=== PATIENT | female | born 1935 | race Caucasian/White ===

== ENCOUNTER 2019-08-28 14:29 | Inpatient (IN) | payer MEDICARE, OTHER ==
[~2019-08-28] VITALS: Ht 162.6 cm; Wt 57.6 kg
--- NOTE | 2019-08-28 14:35 | NUR ---
DR Rivas at the bedside for MSE.
[2019-08-28] MEDS ORDERED: IV NORMAL SALINE 500 ML BAG IV ONE (14:45)
[2019-08-28 15:24] LABS: BASOPHILS % (AUTO) 0.5 % (0.0-2.0); EOSINOPHILS % (AUTO) 0.5 % (0.0-7.0); HEMATOCRIT 38.6 % (31.2-41.9); LYMPHOCYTES # (AUTO) 1.4 K/uL (20.0-40.0); MEAN CORPUSCULAR HEMOGLOBIN 31.4 uug (24.7-32.8); MEAN CORPUSCULAR HGB CONC 34 g/dL (32.3-35.6); MEAN CORPUSCULAR VOLUME 93.4 fL (75.5-95.3); MONOCYTES # (AUTO) 0.6 K/uL (2.0-10.0); MONOCYTES % (AUTO) 9.7 % (0.0-11.0); NEUTROPHILS # (AUTO) 4.5 K/uL (1.8-8.9); NEUTROPHILS % (AUTO) 68.3 % (38.5-71.5); PLATELET COUNT (AUTO) 195 K/uL (179-408); RED BLOOD CELL COUNT(AUTO) 4.14 MIL/uL (3.63-4.92); WHITE BLOOD COUNT (AUTO) 6.5 K/uL (3.8-11.8)
[2019-08-28 15:32] LABS: CARBON DIOXIDE 23 mmol/L (21-32); CHLORIDE 109 mmol/L (98-107); CREATININE 0.8 mg/dL (0.6-1.3); GLUCOSE 118 mg/dL (74-106); POTASSIUM 3.8 mmol/L (3.5-5.1); UREA NITROGEN, BLOOD 19 mg/dL (7-18)
[2019-08-28 15:38] LABS: ALANINE AMINOTRANSFERASE 17 U/L (14-59); ALKALINE PHOSPHATASE 118 U/L (50-136); ASPARTATE AMINOTRANSFERASE 14 U/L (15-37); BILIRUBIN,DIRECT 0.1 mg/dL (0.0-0.2); BILIRUBIN,TOTAL 0.2 mg/dL (0.2-1.0); TOTAL PROTEIN, SERUM 7.3 g/dL (6.4-8.2)
[2019-08-28 15:42] LABS: ACETAMINOPHEN < 2.0 ug/mL (10-30); ETHANOL < 3 MG/DL (0-0)
[2019-08-28 16:00] LABS: *BILIRUBIN,URIN NEGATIVE (NEGATIVE); *BLOOD, URINE NEGATIVE (NEGATIVE); *CLARITY,URINE CLEAR (CLEAR); *COLOR,URINE YELLOW (YELLOW); *KETONES,URINE NEGATIVE (NEGATIVE); *UROBILINOGEN,URINE 0.2 E.U./dl (NORMAL); LEUKOCYTE ESTERASE ,URINE NEGATIVE (NEGATIVE); NITRITE, URINE NEGATIVE (NEGATIVE); UGLUCOSE NEGATIVE (NEGATIVE)
[2019-08-28 16:11] LABS: *AMPHETAMINE, URINE NEGATIVE (NEGATIVE); *BARBITURATE, URINE NEGATIVE (NEGATIVE); *CANNABINOID, URINE NEGATIVE (NEGATIVE); *COCCAINE, URINE NEGATIVE (NEGATIVE); *OPIATE, URINE NEGATIVE (NEGATIVE); *PHENCYCLIDINE SCREEN,URINE NEGATIVE (NEGATIVE)
--- NOTE | 2019-08-28 16:22 | NUR ---
Patient is resting comfortably in bed with eyes closed, NAD noted.
--- NOTE | 2019-08-28 17:00 | NUR ---
RECEIVED PATIENT FROM ER ADMITTED TO TELE UNIT WITH DIAGNOSIS OF ALTERED MENTAL STATUS, PATIENT NEPALESE SPEAKING ALERT AND ORIENTED X2, PATIENT HAS LEFT HEMIPLEGIA/ HEMIPARESIS. NO SOB AND NO C/O PAIN AT THIS TIME. BELONGINGS ACCOUNTED FOR AND PATIENT UNABLE TO SIGN. PATIENT BED IN LOW POSITION AND SIDE RAILS UPS. SAFETY AND COMFORT PROVIDED . WILL CONTINUE TO MONITOR.
[2019-08-28 17:11] VITALS: BP 183/89
[2019-08-28] MEDS ORDERED: BISACODYL 10 MG SUPP.RECT RC PRN (17:45)
[2019-08-28] MEDS ORDERED: FLEET ENEMA 133 ML BOTTLE RC PRN (17:45)
[2019-08-28] MEDS ORDERED: MORPHINE SULFATE 2 MG/1 ML DISP.SYRIN IV PRN (17:45)
[2019-08-28] MEDS ORDERED: ACETAMINOPHEN 325 MG TABLET PO PRN (17:45)
[2019-08-28] MEDS ORDERED: ONDANSETRON 4 MG/2 ML VIAL IV PRN (17:45)
--- NOTE | 2019-08-28 19:20 | NUR ---
PATIENT IN BED , ALERT AND ORIENTED X2, NO SOB AND NO C/O PAIN AT THIS TIME. KEPT CLEAN AND DRY AT ALL TIMES. BED IN LOW POSITION AND SIDE RAILS UP . CALL LIGHT WITHIN REACH. WILL CONTINUE TO MONITOR.
--- NOTE | 2019-08-28 19:30 | NUR ---
Received patient awake and alert in bed, A/Ox1-2, Faroese speaking. No signs of acute distress noted. Complains of some soreness to the neck, no complaints of SOB. Heplock on the right AC is intact and patent. Safety measures initiated. Bed is low and locked, call light within reach. Will continue to monitor.
[2019-08-28 19:53] VITALS: BP 153/75
--- NOTE | 2019-08-28 20:20 | NUR ---
Patient left to radiology for CT scan in stable condition
--- NOTE | 2019-08-28 20:34 | NUR ---
Patient returned from CT.
[2019-08-28] MEDS: MELATONIN 3 MG TABLET PO SCH (20:51)
[2019-08-28] MEDS: LATANOPROST OPHT DROP 2.5 ML BOTTLE EACHEYE SCH (20:51)
[2019-08-28] MEDS: hydrALAZINE HCL 50 MG TABLET PO SCH (21:01)
[2019-08-29 00:48] VITALS: BP 117/59
[2019-08-29 06:19] LABS: BASOPHILS % (AUTO) 0.7 % (0.0-2.0); EOSINOPHILS # (AUTO) 0.1 K/uL (0.0-0.7); EOSINOPHILS % (AUTO) 1.1 % (0.0-7.0); HEMATOCRIT 35.1 % (31.2-41.9); HEMOGLOBIN 12.3 g/dL (10.9-14.3); LYMPHOCYTES # (AUTO) 1.6 K/uL (20.0-40.0); MEAN CORPUSCULAR HEMOGLOBIN 32.4 uug (24.7-32.8); MEAN CORPUSCULAR HGB CONC 35 g/dL (32.3-35.6); MEAN CORPUSCULAR VOLUME 92.5 fL (75.5-95.3); MONOCYTES # (AUTO) 0.5 K/uL (2.0-10.0); MONOCYTES % (AUTO) 9.2 % (0.0-11.0); NEUTROPHILS # (AUTO) 3.6 K/uL (1.8-8.9); PLATELET COUNT (AUTO) 183 K/uL (179-408); RED BLOOD CELL COUNT(AUTO) 3.79 MIL/uL (3.63-4.92); WHITE BLOOD COUNT (AUTO) 5.9 K/uL (3.8-11.8)
[2019-08-29] MEDS: hydrALAZINE HCL 50 MG TABLET PO SCH ×3 (06:30→21:03)
[2019-08-29 06:40] LABS: THYROID STIMULATING HORMONE 2.524 mIU/mL (0.358-3.740)
[2019-08-29 06:55] LABS: BILIRUBIN,TOTAL 0.5 mg/dL (0.2-1.0); CREATININE 0.8 mg/dL (0.6-1.3); MAGNESIUM 1.7 mg/dL (1.8-2.4); POTASSIUM 3.6 mmol/L (3.5-5.1); TOTAL PROTEIN, SERUM 6.8 g/dL (6.4-8.2)
[2019-08-29] MEDS: DIGOXIN 125 MCG TABLET PO SCH (08:47)
[2019-08-29] MEDS: ASPIRIN 81 MG TAB.CHEW PO SCH (08:47)
[2019-08-29] MEDS: MULTIVIT, IRON, MIN NO. 8, FA TABLET PO SCH (08:47)
[2019-08-29] MEDS: GABAPENTIN 300 MG CAPSULE PO SCH ×3 (08:47→17:27)
[2019-08-29] MEDS: LISINOPRIL 20 MG TABLET PO SCH ×2 (08:48→17:26)
[2019-08-29] MEDS: FAMOTIDINE 20 MG TABLET PO SCH (08:48)
[2019-08-29] MEDS ORDERED: Medication Not On Formulary EA (Multivitamins W-Minerals (Multivitamin With Minerals) 1 PO SCH (09:00)
--- NOTE | 2019-08-29 09:28 | NUR ---
SEEN BY PHYSICAL THERAPIST FOR EVAL SEE NOTES
[2019-08-29 11:16] VITALS: BP 132/52
[2019-08-29] MEDS: MAGNESIUM SULFATE/D5W 100 ML IV SCH ×2 (14:54→16:09)
[2019-08-29 15:03] VITALS: BP 133/52
[2019-08-29] MEDS: DOCUSATE SODIUM 100 MG CAPSULE PO SCH (17:25)
--- NOTE | 2019-08-29 19:30 | NUR ---
Received patient awake and alert in bed, no signs of acute distress noted. No complaints of pain or SOB at this time. Heplock on the right AC intact and patent. Will turn and reposition frequently. Safety measures initiated. Bed is low and locked, call light within reach, bed alarm on. Will continue to monitor.
[2019-08-29 20:20] VITALS: BP 124/57
[2019-08-29] MEDS: MELATONIN 3 MG TABLET PO SCH (20:40)
[2019-08-29] MEDS: LATANOPROST OPHT DROP 2.5 ML BOTTLE EACHEYE SCH (20:40)
[2019-08-30 00:53] VITALS: BP 132/59
[2019-08-30 04:00] VITALS: BP 102/48
[2019-08-30] MEDS: hydrALAZINE HCL 50 MG TABLET PO SCH ×3 (06:00→21:02)
[2019-08-30 06:42] LABS: MAGNESIUM 2.3 mg/dL (1.8-2.4); POTASSIUM 3.9 mmol/L (3.5-5.1)
--- NOTE | 2019-08-30 08:00 | NUR ---
AWAKE ALERT BUT CONFUSED X3. CONFUSED AND REFUSING TO EAT. NO SS OF PAIN OR DISTRESS. SEEN BY PHYSICAL THERAPIST. SEE NOTES
[2019-08-30] MEDS: FAMOTIDINE 20 MG TABLET PO SCH (08:59)
[2019-08-30] MEDS: ASPIRIN 81 MG TAB.CHEW PO SCH (08:59)
[2019-08-30] MEDS: MULTIVIT, IRON, MIN NO. 8, FA TABLET PO SCH (08:59)
[2019-08-30] MEDS: GABAPENTIN 300 MG CAPSULE PO SCH ×3 (09:00→17:27)
[2019-08-30] MEDS: DOCUSATE SODIUM 100 MG CAPSULE PO SCH ×2 (09:00→17:27)
[2019-08-30] MEDS: LISINOPRIL 20 MG TABLET PO SCH ×2 (09:00→17:27)
[2019-08-30] MEDS: DIGOXIN 125 MCG TABLET PO SCH (09:00)
[2019-08-30 11:00] VITALS: BP 165/48
--- NOTE | 2019-08-30 12:00 | NUR ---
MOVED TO ROOM 309 FOR SAFETY ISSUE SR/SB ON MONITOR
[2019-08-30] MEDS ORDERED: CEphaleXIN 500 MG CAPSULE PO SCH (14:00)
[2019-08-30 16:00] VITALS: BP 132/39
--- NOTE | 2019-08-30 17:52 | NUR ---
PLAN DC BACK TO [facility]. PATIENT REMAINS AFEBRILE. CONTINUE WITH MACROBID PO FOR UTI. PATIENT REMAINS CONFUSED REFUSING TO EAT. SEEN BY PUMP RUNNER
--- NOTE | 2019-08-30 19:20 | NUR ---
Received patient lying in bed. Awake, but non-verbal. Affect flat. No signs or symptoms of pain or SOB noted. V pacing on tele with HR of 60/min. IV site on right AC intact and patent. Safety measure initiated and call garcia within reached. Continue to monitor.
[2019-08-30 20:05] VITALS: BP 187/71
[2019-08-30] MEDS: NITROFURANTOIN/NITROFURAN MAC 100 MG CAPSULE PO SCH (21:01)
[2019-08-30] MEDS: MELATONIN 3 MG TABLET PO SCH (21:01)
[2019-08-30] MEDS: LATANOPROST OPHT DROP 2.5 ML BOTTLE EACHEYE SCH (21:02)
[2019-08-31 00:20] VITALS: BP 142/75
[2019-08-31 04:18] VITALS: BP 136/72
[2019-08-31] MEDS: hydrALAZINE HCL 50 MG TABLET PO SCH ×3 (06:14→21:29)
--- NOTE | 2019-08-31 06:29 | NUR ---
Awake, but non-verbal. No signs or symptoms of pain or SOB noted. V pacing on tele with HR of 60/min. IV site on right AC intact and patent. No adverse effect noted from PO ABX. Safety measure maintained and call garcia within reached.
[2019-08-31 07:25] LABS: BASOPHILS % (AUTO) 0.8 % (0.0-2.0); EOSINOPHILS # (AUTO) 0.1 K/uL (0.0-0.7); EOSINOPHILS % (AUTO) 1.9 % (0.0-7.0); HEMATOCRIT 38.5 % (31.2-41.9); HEMOGLOBIN 13.2 g/dL (10.9-14.3); LYMPHOCYTES # (AUTO) 1.6 K/uL (20.0-40.0); LYMPHOCYTES % (AUTO) 29.3 % (20.5-51.5); MEAN CORPUSCULAR HEMOGLOBIN 31.8 uug (24.7-32.8); MEAN CORPUSCULAR HGB CONC 34 g/dL (32.3-35.6); MEAN CORPUSCULAR VOLUME 92.6 fL (75.5-95.3); MONOCYTES # (AUTO) 0.6 K/uL (2.0-10.0); MONOCYTES % (AUTO) 11.1 % (0.0-11.0); NEUTROPHILS # (AUTO) 3.2 K/uL (1.8-8.9); NEUTROPHILS % (AUTO) 56.9 % (38.5-71.5); PLATELET COUNT (AUTO) 183 K/uL (179-408); RED BLOOD CELL COUNT(AUTO) 4.15 MIL/uL (3.63-4.92); WHITE BLOOD COUNT (AUTO) 5.5 K/uL (3.8-11.8)
--- NOTE | 2019-08-31 07:30 | NUR ---
Awake, confused, maori speaking. Bed alarm on
[2019-08-31 07:34] LABS: CREATININE 0.8 mg/dL (0.6-1.3); POTASSIUM 3.5 mmol/L (3.5-5.1)
[2019-08-31] MEDS: ASPIRIN 81 MG TAB.CHEW PO SCH (09:09)
[2019-08-31] MEDS: NITROFURANTOIN/NITROFURAN MAC 100 MG CAPSULE PO SCH ×2 (09:09→20:33)
[2019-08-31] MEDS: DIGOXIN 125 MCG TABLET PO SCH (09:09)
[2019-08-31] MEDS: DOCUSATE SODIUM 100 MG CAPSULE PO SCH ×2 (09:09→17:38)
[2019-08-31] MEDS: FAMOTIDINE 20 MG TABLET PO SCH (09:10)
[2019-08-31] MEDS: LISINOPRIL 20 MG TABLET PO SCH ×2 (09:10→17:38)
[2019-08-31] MEDS: GABAPENTIN 300 MG CAPSULE PO SCH ×3 (09:10→17:38)
[2019-08-31] MEDS: MULTIVIT, IRON, MIN NO. 8, FA TABLET PO SCH (09:10)
--- NOTE | 2019-08-31 10:00 | NUR ---
Participated with PT, doing exercises at edge of bed
[2019-08-31 10:29] VITALS: BP 145/55
[2019-08-31 14:39] VITALS: BP 167/71
--- NOTE | 2019-08-31 15:54 | NUR ---
Calm and cooperative with care and taking of medications
--- NOTE | 2019-08-31 17:00 | NUR ---
Dr. Sneed informed of patient's vp design (Dr. Jordan Huitron) request to check pacemaker device ([employer]) and to possibly do generator replacement as patient was scheduled to this procedure on 09/11/19
--- NOTE | 2019-08-31 18:29 | NUR ---
Pleasant and cooperative with care. Free from fall or injury
--- NOTE | 2019-08-31 19:30 | NUR ---
PATIENT ALERT ORIENTED, NO SOB NO CHEST PAIN, SPEAK [place] BUT UNDERSTAND CYMRO. NO COMPLAIN OF PAIN, CONT TO MONITOR.
[2019-08-31 20:00] VITALS: BP 118/62
[2019-08-31] MEDS: MELATONIN 3 MG TABLET PO SCH (20:33)
[2019-08-31] MEDS: LATANOPROST OPHT DROP 2.5 ML BOTTLE EACHEYE SCH (20:42)
[2019-09-01 04:05] VITALS: BP 142/70
[2019-09-01] MEDS: hydrALAZINE HCL 50 MG TABLET PO SCH ×2 (06:02→13:15)
--- NOTE | 2019-09-01 06:30 | NUR ---
PATIENT SLEPT INTERMITTENTLY, DENIES PAIN AT THIS TIME, KEPT CLEAN DRY AND COMFORTABLE, CALL LIGHT WITHIN REACH.
[2019-09-01 06:38] LABS: BASOPHILS % (AUTO) 0.9 % (0.0-2.0); EOSINOPHILS # (AUTO) 0.1 K/uL (0.0-0.7); EOSINOPHILS % (AUTO) 1.7 % (0.0-7.0); HEMATOCRIT 37.4 % (31.2-41.9); HEMOGLOBIN 12.7 g/dL (10.9-14.3); LYMPHOCYTES # (AUTO) 1.4 K/uL (20.0-40.0); LYMPHOCYTES % (AUTO) 28.6 % (20.5-51.5); MEAN CORPUSCULAR HEMOGLOBIN 31.6 uug (24.7-32.8); MEAN CORPUSCULAR HGB CONC 34 g/dL (32.3-35.6); MONOCYTES # (AUTO) 0.6 K/uL (2.0-10.0); MONOCYTES % (AUTO) 12.6 % (0.0-11.0); NEUTROPHILS # (AUTO) 2.8 K/uL (1.8-8.9); NEUTROPHILS % (AUTO) 56.2 % (38.5-71.5); PLATELET COUNT (AUTO) 187 K/uL (179-408); RED BLOOD CELL COUNT(AUTO) 4.02 MIL/uL (3.63-4.92)
[2019-09-01 06:43] LABS: CREATININE 0.8 mg/dL (0.6-1.3); POTASSIUM 3.7 mmol/L (3.5-5.1)
[2019-09-01 08:17] VITALS: BP 154/68
[2019-09-01] MEDS: NITROFURANTOIN/NITROFURAN MAC 100 MG CAPSULE PO SCH (08:54)
[2019-09-01] MEDS: DIGOXIN 125 MCG TABLET PO SCH (08:54)
[2019-09-01] MEDS: LISINOPRIL 20 MG TABLET PO SCH ×2 (08:54→16:34)
[2019-09-01] MEDS: DOCUSATE SODIUM 100 MG CAPSULE PO SCH ×2 (08:54→16:34)
[2019-09-01] MEDS: FAMOTIDINE 20 MG TABLET PO SCH (08:54)
[2019-09-01] MEDS: ASPIRIN 81 MG TAB.CHEW PO SCH (08:54)
[2019-09-01] MEDS: MULTIVIT, IRON, MIN NO. 8, FA TABLET PO SCH (08:54)
[2019-09-01] MEDS: GABAPENTIN 300 MG CAPSULE PO SCH ×3 (08:54→16:34)
[2019-09-01 11:12] VITALS: BP 123/46
[2019-09-01] MEDS ORDERED: POTASSIUM CHLORIDE 20 MEQ POWDER PACKET GT ONE (11:45)
--- NOTE | 2019-09-01 14:17 | NUR ---
PATIENT WILL DISCHARGE TO [facility]. PATIENT SON NOTIFIED ABOUT DISCHARGE TO PREVIOUS LOCATION. WILL CALL WHEN PATIENT DISCHARGES. GERARDO CHRISTINA RN
[2019-09-01 15:06] VITALS: BP 128/72
[2019-09-01 16:34] VITALS: BP 126/62
--- NOTE | 2019-09-01 18:56 | NUR ---
Handoff with night team registered nurse. Endorsement to call Luis when patient discharges, . Dez Segundo RN
== END 2019-09-01 21:45 | DRG 689 ==
LOC: ER 14:29 → TELE3 16:26 → MEDSURG3 08-31 19:33
PROVIDERS: ADMIT Internal Medicine; ATTEND Internal Medicine
DX: N39.0 Urinary tract infection, site not specified (principal); G93.41 Metabolic encephalopathy; I50.31 Acute diastolic (congestive) heart failure; I48.20 Chronic atrial fibrillation, unspecified; D68.59 Other primary thrombophilia; I69.359 Hemiplegia and hemiparesis following cerebral infarction affecting unspecified side; E44.1 Mild protein-calorie malnutrition; R40.2242 Coma scale, best verbal response, confused conversation, at arrival to emergency department; R40.2362 Coma scale, best motor response, obeys commands, at arrival to emergency department; R40.2132 Coma scale, eyes open, to sound, at arrival to emergency department; B96.20 Unspecified Escherichia coli [E. coli] as the cause of diseases classified elsewhere; D32.9 Benign neoplasm of meninges, unspecified; Z95.810 Presence of automatic (implantable) cardiac defibrillator; I11.0 Hypertensive heart disease with heart failure; M19.90 Unspecified osteoarthritis, unspecified site; G62.9 Polyneuropathy, unspecified; H40.9 Unspecified glaucoma; G47.00 Insomnia, unspecified; E83.42 Hypomagnesemia; E78.5 Hyperlipidemia, unspecified; Y90.0 Blood alcohol level of less than 20 mg/100 ml; F01.50 Vascular dementia, unspecified severity, without behavioral disturbance, psychotic disturbance, mood disturbance, and anxiety; R73.9 Hyperglycemia, unspecified
CPT/HCPCS: 36415; 70030-TC; 70450; 71045; 80307; 83605; 83735; 84100; 84443; 85025; 85730; 87040; 87077; 87086; 87400; 93005; 93307; A4663; C1758; G0378; G0480; G0480-TC; J3475; J7040; J7050